=== PATIENT | male | born 1960 | race Caucasian/White ===

== ENCOUNTER → 2016-08-16 | Outpatient (CLI) | payer OTHER ==
[2016-08-16 10:41] LABS: HEMOGLOBIN 15.9 gm/dl (14.0-17.5); RED BLOOD COUNT 5.1 M/UL (4.20-5.50); WHITE BLOOD COUNT 15.4 K/UL (4.5-11.0)
[2016-08-16 10:59] LABS: BUN/CREATININE RATIO 16 (0-10)
== END ==
LOC: LAB 09:31
PROVIDERS: Internal Medicine Gastroenterology
DX: J44.9 Chronic obstructive pulmonary disease, unspecified (principal); R10.12 Left upper quadrant pain; I10 Essential (primary) hypertension; K75.9 Inflammatory liver disease, unspecified
CPT/HCPCS: 36415; 80053; 80307; 82103; 82105; 82172; 82247; 82248; 82728; 82977; 83010; 83540; 83550; 83883; 84460; 85027; 86039; 86235; 86706; 87521

== ENCOUNTER → 2016-11-10 | Outpatient (CLI) | payer OTHER | LOC: LAB 12:21 | DX: B19.20 Unspecified viral hepatitis C without hepatic coma (principal) | CPT/HCPCS: 36415; 87521 ==

== ENCOUNTER → 2020-08-22 | Outpatient (CLI) | payer MEDICARE, OTHER ==
[2020-08-22 11:24] LABS: HEMOGLOBIN 13.9 gm/dl (14.0-17.5); RED BLOOD COUNT 4.63 M/UL (4.20-5.50); WHITE BLOOD COUNT 10.1 K/UL (4.5-11.0)
[2020-08-22 11:47] LABS: BUN/CREATININE RATIO 16 (0-10)
== END ==
LOC: LAB 10:38
PROVIDERS: Family Medicine
DX: I10 Essential (primary) hypertension (principal)
CPT/HCPCS: 36415; 80053; 80061; 84443; 85025